=== PATIENT | male | born 1940 | race Hispanic/Latino ===

== ENCOUNTER 2018-08-09 11:43 | Emergency (ER) | payer MEDICARE, BC ==
[2018-08-09 11:56] VITALS: BMI 23.6
[2018-08-09] MEDS ORDERED: Artificial Tears Opht Soln OU STA (12:07)
[2018-08-09 12:30] LABS: BASO % 0.3 % (0.0-2.0); EOS # 0.1 K/uL (0.0-0.7); EOS % 2.2 % (0.0-4.0); HEMOGLOBIN 12.8 g/dL (12.0-18.0); LYMPH # 1.3 K/uL (1.0-4.3); LYMPH % 26.9 % (20.0-40.0); MEAN CELL VOLUME 84.2 fl (80.0-94.0); MEAN CORPUSCULAR HEMOGLOBIN 27.7 pg (27.0-31.0); MEAN CORPUSCULAR HGB CONC 32.9 g/dL (33.0-37.0); MEAN PLATELET VOLUME 7.2 fl (7.2-11.7); MONO # 0.6 K/uL (0.0-0.8); MONO % 11.5 % (0.0-10.0); NEUT # 2.9 K/uL (1.8-7.0); NEUT % 59.1 % (50.0-75.0); NRBC % 0.1 % (0.0-0.0); RBC 4.64 Mil/uL (4.40-5.90); RED CELL DISTRIBUTION WIDTH 15.6 % (11.5-14.5); WHITE BLOOD COUNT 4.9 K/uL (4.8-10.8)
[2018-08-09 12:44] LABS: ALB/GLOB RATIO 1.2 (1.0-2.1); ALBUMIN 4.2 g/dL (3.5-5.0); CALCIUM 9.1 mg/dL (8.4-10.2)
[2018-08-09 12:45] LABS: PARTIAL THROMBOPLASTIN TIME 27.5 Seconds (25.6-37.1)
--- NOTE | 2018-08-09 13:28 | CT ---
Date of service: 08/09/2018 PROCEDURE: CT HEAD WITHOUT CONTRAST. HISTORY: right sided droop COMPARISON: None available. TECHNIQUE: Axial computed tomography images were obtained through the head/brain without intravenous contrast. Radiation dose: Total exam DLP = 1036.38 mGy-cm. This CT exam was performed using one or more of the following dose reduction techniques: Automated exposure control, adjustment of the mA and/or kV according to patient size, and/or use of iterative reconstruction technique. FINDINGS: HEMORRHAGE: No intracranial hemorrhage. BRAIN: The lee-white matter differentiation is well preserved. There is no mass effect or definitive edema pattern appreciated including the cortex. There is proportional expansion of the ventriculosulcal and cisternal spaces however in a pattern most compatible with diffuse cerebral atrophy. No suspicious extra-axial fluid collection is identified in the midline brain anatomy appears grossly nonfocal as imaged. VENTRICLES: Unremarkable. No hydrocephalus. CALVARIUM: Unremarkable. PARANASAL SINUSES: Mucosal inflammatory change identified throughout multiple ethmoid air cells diffusely. MASTOID AIR CELLS: Unremarkable as visualized. No inflammatory changes. OTHER FINDINGS: None. 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 No acute intracranial findings by standard CT criteria. Limited sinus disease as discussed above.
--- NOTE | 2018-08-09 13:45 | ED PDOC ---
HPI: Neurologic - General Time Seen by Provider: 08/09/18 12:01 Chief Complaint (Nursing): Weakness/Neurological Deficit Chief Complaint (Provider): Weakness/Neurological Deficit Source: patient Exam Limitations: no limitations - History of Present Illness Timing/Duration: other (x3 days) Allergies/Adverse Reactions: Allergies No Known Allergies Allergy (Verified 08/09/18 12:06) Home Medications: Ambulatory Orders Multivitamin [Multi-Vitamin Daily] 1 each PO DAILY 11/10/17 Tamsulosin [Flomax] 0.4 mg PO DAILY 11/10/17 Docusate [Colace] 100 mg PO BID cap 11/12/17 Ferrous Sulfate [Feosol] 325 mg PO DAILY tab 11/12/17 Peg 400/Hypromellose/Glycerin [Visine Tears 0.2%-0.2%-1% 15 ml] 1 drop OD Q1 7 Days thierry 08/09/18 PrednisoLONE 1% [Prednisolone Acetate 5 Ml] 2 drop OD QID 7 Days bottle 08/09/18 predniSONE [predniSONE Tab] 10 mg PO DAILY #5 tab 08/09/18 predniSONE [predniSONE Tab] 60 mg PO DAILY #12 tab 08/09/18 valACYclovir [Valtrex] 1 gm PO TID #21 tab 08/09/18 Additional Complaint(s): Patient is an 78 y/o male with an extensive PMHx who presents to the ED for evaluation of a right-sided facial droop for the past three days. Patient states his symptoms started off as a droop of his right lip but now patient claims he cannot close his right eye. Patient reports he woke up this morning with his right eye heavily watering. Patient indicated he contacted his PCP who ins tructed the patient to go the ED. Patient denies weakness, numbness, slurred speech, headache, change in vision, confusion, and fever. PCP: Dr. Yared Phillips Past Medical History Reviewed: Historical Data, Nursing Documentation, Vital Signs Vital Signs: Last Vital Signs Temp 99 F 08/09/18 11:56 Pulse 69 08/09/18 11:56 Resp 17 08/09/18 11:56 BP 109/64 08/09/18 11:56 Pulse Ox 96 08/09/18 11:56 Primary Care Provider: Yared Phillips - Medical History PMH: COPD (on x ray), HTN, Chronic Kidney Disease, Sleep Apnea (no c pap) - Surgical History Surgical History: No Surg Hx - Family History Family History: States: No Known Family Hx - Immunization History Hx Tetanus Toxoid Vaccination: No Hx Influenza Vaccination: No Hx Pneumococcal Vaccination: No - Home Medications Home Medications: Ambulatory Orders Medication Instructions Recorded Multivitamin [Multi-Vitamin Daily] 1 each PO DAILY 11/10/17 Tamsulosin [Flomax] 0.4 mg PO DAILY 11/10/17 Docusate [Colace] 100 mg PO BID cap 11/12/17 Ferrous Sulfate [Feosol] 325 mg PO DAILY tab 11/12/17 Peg 400/Hypromellose/Glycerin 1 drop OD Q1 7 Days thierry 08/09/18 [Visine Tears 0.2%-0.2%-1% 15 ml] PrednisoLONE 1% [Prednisolone 2 drop OD QID 7 Days bottle 08/09/18 Acetate 5 Ml] predniSONE [predniSONE Tab] 10 mg PO DAILY #5 tab 08/09/18 predniSONE [predniSONE Tab] 60 mg PO DAILY #12 tab 08/09/18 valACYclovir [Valtrex] 1 gm PO TID #21 tab 08/09/18 - Allergies Allergies/Adverse Reactions: Allergies Allergy/AdvReac Type Severity Reaction Status Date / Time No Known Allergies Allergy Verified 08/09/18 12:06 Review of Systems ROS Statement: Except As Marked, All Systems Reviewed And Found Negative Constitutional: Negative for: Fever Eyes: Negative for: Vision Change ENT: Positive for: Other (right eye heavily watering) Neurological: Positive for: Other (right-sided facial droop). Negative for: Weakness, Numbness, Change in Speech, Confusion, Headache Physical Exam - Reviewed Nursing Documentation Reviewed: Yes Vital Signs Reviewed: Yes - Physical Exam Appears: Positive for: No Acute Distress Head Exam: Positive for: ATRAUMATIC, NORMAL INSPECTION, NORMOCEPHALIC Skin: Positive for: Normal Color, Warm, DRY Eye Exam: Positive for: EOMI, PERRL, Other (unable to raise right eyelid; cannot fully close right eye) ENT: Positive for: Other (drooping and incomplete closure of right side of lips) Neck: Positive for: Normal, Painless ROM, Supple Cardiovascular/Chest: Positive for: Regular Rate, Rhythm. Negative for: Murmur Respiratory: Positive for: Normal Breath Sounds. Negative for: Respiratory Distress Gastrointestinal/Abdominal: Positive for: Normal Exam, Soft. Negative for: Tenderness Back: Positive for: Normal Inspection. Negative for: L CVA Tenderness, R CVA Tenderness Extremity: Positive for: Normal ROM. Negative for: Pedal Edema, Deformity Neurological/Psych: Positive for: Alert, Oriented (x3), Facial Droop (right- sided upper and lower facial weakness) - Laboratory Results Result Diagrams: 08/09/18 12:15 08/09/18 12:15 Lab Results: PT 12.0 Seconds (9.8-13.1) 08/09/18 12:15 INR 1.0 08/09/18 12:15 APTT 27.5 Seconds (25.6-37.1) 08/09/18 12:15 Total Bilirubin 0.8 mg/dl (0.2-1.3) 08/09/18 12:15 AST 28 U/L (17-59) 08/09/18 12:15 ALT 16 U/L (21-72) L 08/09/18 12:15 Alkaline Phosphatase 78 U/L (38-126) 08/09/18 12:15 Total Protein 7.7 G/DL (6.3-8.2) 08/09/18 12:15 Albumin 4.2 g/dL (3.5-5.0) 08/09/18 12:15 Globulin 3.5 gm/dL (2.2-3.9) 08/09/18 12:15 Albumin/Globulin Ratio 1.2 (1.0-2.1) 08/09/18 12:15 - ECG O2 Sat by Pulse Oximetry: 96 (RA) Pulse Ox Interpretation: Normal Medical Decision Making Medical Decision Making: Time: 1205 Impression: [place] Palsy Plan: CT Head w/o Contrast CMP CBC PTT Prothrombin Time Artificial Tears 2 drop UO Zovirax 400 mg PO predniSONE 60 mg PO Time: 1330 CT shows no acute disease. [place] palsy of right side. Given first medication in ED. Will discharge with Visine Tears, Prednisolone, predniSONE, and Valtrex. Followup with PCP and Neurologist. Patient scheduled for appointment with Sports Cartoonist on 08/12/18. Return parameters discussed. -- Scribe Attestation: Documented by Nathan Padilla, acting as a scribe for Cat Toro MD. Provider Scribe Attestation: All medical record entries made by the Scribe were at my direction and personally dictated by me. I have reviewed the chart and agree that the record accurately reflects my personal performance of the history, physical exam, medical decision making, and the department course for this patient. I have also personally directed, reviewed, and agree with the discharge instructions and disposition. Disposition - Clinical Impression Clinical Impression: Rubalcava's palsy - Disposition Referrals: Ced Bautista MD [Staff Provider] - Елена Morrison MD [Medical Doctor] - Disposition: Routine/Home Disposition Time: 13:40 Condition: STABLE Additional Instructions: Follow up with primary medical doctor and neurologist. Follow up with packaging design engineer on Saturday ([place]). Take all medications as prescribed. Apply eye drops (antibiotics and moisturizer as prescribed) and use eye patch to keep eye moist. Return to the emergency department immediately if symptoms worsen or if new symptoms develop. Prescriptions: Peg 400/Hypromellose/Glycerin [Visine Tears 0.2%-0.2%-1% 15 ml] 1 drop OD Q1 7 Days thierry PrednisoLONE 1% [Prednisolone Acetate 5 Ml] 2 drop OD QID 7 Days bottle predniSONE [predniSONE Tab] 10 mg PO DAILY #5 tab predniSONE [predniSONE Tab] 60 mg PO DAILY #12 tab valACYclovir [Valtrex] 1 gm PO TID #21 tab Instructions: Rubalcava's Palsy (DC) Forms: [employer] (Namibian) Print Language: BELARUSIAN
[2018-08-09 15:05] VITALS: BP 178/79; PULSE 67; RESP 16; TEMP 98.5
[2018-08-09 18:32] VITALS: O2SAT 96
== END 2018-08-09 14:20 | disposition home or self-care (01) ==
LOC: H.ER 11:43
DX: G51.0 Bell's palsy (principal); I12.9 Hypertensive chronic kidney disease with stage 1 through stage 4 chronic kidney disease, or unspecified chronic kidney disease; N18.9 Chronic kidney disease, unspecified